=== PATIENT | female | born 1940 | race Caucasian/White ===

== ENCOUNTER 2017-05-30 07:25 | Day surgery (SDC) | payer MEDICARE ==
--- NOTE | 2017-05-30 04:59 | History and Physical Report ---
DATE: 05/29/2017. CHIEF COMPLAINT AND HISTORY OF CHIEF COMPLAINT: This patient presents with a history of an intractable lumbar radiculopathy. She had a spinal cord stimulator trial conducted on 04/05/2017 with 75 to 85 percent pain control. Due to the failure of therapy and the success of the trial, the patient presents for implantation of a permanent system. PAST MEDICAL HISTORY: Coronary artery disease, hypertension, pelvic cancer, degenerative arthritis. PAST SURGICAL HISTORY: Intracranial aneurysm repair, hysterectomy, rotator cuff surgery, gallbladder surgery, ankle surgery, carpal tunnel release. MEDICATIONS ON ADMISSION: To be provided. ALLERGIES: None. PHYSICAL EXAMINATION: General: Height and weight are unavailable. Vital Signs: Unavailable. Musculoskeletal: Examination of the musculoskeletal system shows tenderness in the lumbar spine. Range of motion does produce pain moving into both legs, somewhat more right than left. Motor evaluation shows weakness in the right lower extremity. Sensory field evaluation shows no significant deficits of the sensory function. Ambulation: Intact. No assistive device required. Neurologic: Cranial nerves are intact. IMPRESSION: LUMBAR RADICULOPATHY, ICD-10 CODE M54.16 AND M54.17. PLAN: The patient is here for implantation of a permanent spinal cord stimulator due to the failure of all therapy and the success of the trial. The procedure will be considered outpatient, although an overnight stay will be evaluated. The potential risks, side effects, and complications have been carefully reviewed and discussed including spinal cord injury, nerve root injury , spinal headache, and failure of the therapy. The patient understands and has consented. JOB NUMBER: [id number] cc: Ron Cook D.O. MTDD
[~2017-05-30 07:25] MED LIST: ACETAMINOPHEN 1,000 MG/100 ML BTL IV ONE; CEFAZOLIN 2 Gram 2 GM/50 ML BAG IVPB ONE; FAMOTIDINE 20MG TABLET PO ONE; MECLIZINE 25 MG TABLET PO ONE; METOCLOPRAMIDE 10 MG TABLET PO ONE
[2017-05-30] MEDS ORDERED: *PACU ONLY* KETAMINE HCL 10 MG/ML (20ML) VIAL IV ONE (07:26)
[2017-05-30] MEDS ORDERED: MIDAZOLAM HCL 2MG/2ML VIAL IV ONE ×2 (07:26)
[2017-05-30] MEDS ORDERED: CEFAZOLIN 1G VIAL IM ONE (07:26)
[2017-05-30] MEDS ORDERED: FLUMAZENIL 1MG/10ML VIAL IV ONE (07:26)
[2017-05-30] MEDS ORDERED: PROPOFOL 10 MG/ML VIAL IV ONE (07:26)
[2017-05-30] MEDS ORDERED: BUPIVACAINE 0.5% W/EPI MPF 30 ML VIAL IVP ONE (07:26)
[2017-05-30] MEDS ORDERED: KETOROLAC 30 MG/ML VIAL IVP ONE (07:26)
[2017-05-30] MEDS ORDERED: LIDOCAINE 1% W/EPI 1:200,000 MPF 30ML SQ ONE (07:26)
[2017-05-30] MEDS ORDERED: LIDOCAINE 2% MDV (20MG/ML) 20ML VIAL IV ONE (07:26)
[2017-05-30] MEDS ORDERED: FENTANYL PF 100MCG/2ML VIAL IV ONE (07:26)
[2017-05-30] MEDS ORDERED: TEMAZEPAM 15 MG CAPSULE PO PRN ×2 (11:16)
[2017-05-30] MEDS ORDERED: METOCLOPRAMIDE 10 MG TABLET PO PRN (11:16)
[2017-05-30] MEDS ORDERED: METOCLOPRAMIDE HCL 10 MG/2 ML VIAL IVP PRN (11:16)
[2017-05-30] MEDS ORDERED: SENNOSIDES/DOCUSATE SODIUM UD CAPSULE PO PRN ×2 (11:16)
[2017-05-30] MEDS ORDERED: DIPHENHYDRAMINE HCL IV 50 MG/ML VIAL IVP PRN ×2 (11:16)
[2017-05-30] MEDS ORDERED: HYDROMORPHONE HCL 2 MG/ML VIAL IM PRN ×2 (11:16)
[2017-05-30] MEDS ORDERED: OXYCODONE/APAP 10MG-325MG TABLET PO PRN ×2 (11:16)
[2017-05-30] MEDS ORDERED: ACETAMINOPHEN 325 MG TAB PO PRN ×2 (11:16)
[2017-05-30] MEDS ORDERED: DIPHENHYDRAMINE HCL 25 MG CAPSULE PO PRN ×2 (11:16)
[2017-05-30] MEDS ORDERED: AL HYDROX/MAG HYDROX 30ML UD PO PRN (11:16)
[2017-05-30] MEDS ORDERED: HYDROCODONE/APAP 7.5/325MG TABLET PO PRN (11:16)
--- NOTE | 2017-05-30 16:20 | Operative Note - [place] ---
DATE OF SURGERY: 05/30/17 PREOPERATIVE DIAGNOSIS: LUMBAR RADICULOPATHY, ICD-10 CODE = M54.16 AND M54.17. OPERATION: 1. FLUOROSCOPICALLY-GUIDED EPIDURAL ACCESS LEFT T11/12, PLACEMENT OF SPINAL CORD STIMULATOR LEAD 1, A [employer] IN[employer]INION 16 WITH 16 ELECTRODES POSITIONED LEFT T6. 2. FLUOROSCOPICALLY-GUIDED EPIDURAL ACCESS LEFT, T12/L1. PLACEMENT OF SPINAL CORD STIMULATOR LEAD 2, A [employer] 16 WITH 16 ELECTRODES POSITIONED RIGHT, T6. 3. COMPLEX PROGRAMMING LEAD 1 OVER 20 MINUTES FOLLOWED BY COMPLEX PROGRAMMING OF LEAD 2 OVER 20 MINUTES. 4. INCISION, SUBCUTANEOUS DISSECTION, AND ANCHORING LEAD 1 AND LEAD 2 TO SUPRASPINOUS FASCIA WITH [employer] LOCKING ANCHOR. 5. INCISION, SUBCUTANEOUS DISSECTION, AND CREATION OF SUBCUTANEOUS CREATION OF POUCH, LEFT POSTERIOR GLUTEAL MARGIN FOR PLACEMENT OF GENERATOR IDENTIFIED A [employer] PROGRAMMABLE RECHARGEABLE. 6. TUNNELING BETWEEN POUCHES, PLACEMENT OF EXTERNAL PORTION OF LEAD 1 AND LEAD 2 INTO GENERATOR POUCH, EACH LEAD INTERFACED TO GENERATOR. 7. PLACEMENT OF GENERATOR POUCH SECURING TO POSTERIOR FASCIA WITH NONABSORBABLE SUTURE. PLACEMENT OF LEADS INTO POUCH. CLOSURE OF BOTH INCISIONS VICRYL FOR FASCIA AND RUNNING SUBCUTICULAR VICRYL FOR SKIN. DERMABOND CLOSURE. 8. COMPLEX RECOVERY ROOM PROGRAMMING INTERNAL GENERATOR HOME USE TWO STIMULATORS , RECOVERY ROOM 20 MINUTES. SURGEON: BARON LARA D.O. ANESTHESIA: LOCAL SEDATION. ANESTHESIA PROVIDER: MARITZA MAURICIO CRNA. INDICATION: This patient presents with a history of intractable lumbar radiculopathy. Due to the failure of all therapy, a spinal cord stimulator trial was conducted with 75 to 85% pain control. Due to the failure of all therapy and the success of the trial, she is here for implantation of a permanent system. PROCEDURE: Intravenous line, vital sign monitoring, IV sedation, prepped and draped in sterile technique. Under imaging, the rotoscoliosis moderately severe was imaged using appropriate oblique imaging to align an AP view. The skin 11 and 01/12 were infiltrated with local on the left. Using two Epimed curved axis needles with [id number], the epidural space was accessed. At 11/12 , spinal cord stimulator lead 1, a [employer] Infinion 16 with 16 electrodes positioned left at T6. With the epidural access at T12, same technique, spinal cord stimulator lead 2, a [employer] Infinion 16 with 16 electrodes positioned right at T6. Complex programming of lead 1 over 20 minutes followed by complex programming of lead 2 over 20 minutes resulting in a complete pattern of stimulation across the back and into the legs; patient indicating we are in all of the areas of the pain. She was given the option to implant, continue to program for better results, or remove; she opted to implant. Questions repeated with the same response. The skin above and below both needles infiltrated, incision made, and subcutaneous dissection was conducted to the supraspinous fascia. The needles were removed then each lead was secured to the supraspinous fascia with a eTect Locking [place]. At the left posterior gluteal margin, a site picked by the patient for the generator, skin infiltrated, incision made, and subcutaneous dissection was conducted to form a pouch of suitable size and depth for the generator, a [employer] Programmable Rechargeable. A tunneling tool was used to carry the leads into the generator pouch and then each lead was interfaced with the generator. Antibiotic irrigation and Bovie for hemostasis. The generator was placed into the pouch and secured to the fascia with nonabsorbable suture. Both leads were placed into their own pouch and then the incisions were closed Vicryl for fascia and running subcuticular Vicryl for skin. Dermabond closure to approximate the edges of both wounds. She was transported to the Recovery Room stable. No side-effects from the procedure or the sedation. When fully awake and alert, she was transported to the Floor for monitoring. Because of age and medical history, she will be kept overnight for observation. She showed no abnormal findings. She had full extremity functionality and seemed to be appropriate in responses. DISCHARGE INSTRUCTIONS IN THE MORNIN. Sites will continue to remain clean and dry although she may shower, not sit in a tub because of the Dermabond. 2. Standard medications resumed including Levaquin, the antibiotic, 500 mg once a day for 14 days. 3. The office will contact the patient at home to set up an appointment in 7-10 days to evaluate the sites. Until then, she is to keep her activities low. No bend, lift, push, pull. All other instructions provided, numbers to contact, problems given. She will be discharged in the morning. cc: Dr. Frederic Brown JOB NUMBER: [id number] MTDD
[2017-05-30] MEDS: HYDROCODONE/APAP 7.5/325MG TABLET PO PRN ×3 (18:09→22:50)
[2017-05-30] MEDS: CEFAZOLIN 2 Gram 2 GM/50 ML BAG IVPB SCH (18:09)
[2017-05-30] MEDS ORDERED: ATENOLOL 25 MG TABLET PO SCH (22:00)
[2017-05-30] MEDS: 0.9 % SODIUM CHLORIDE 10ML SYR IVP SCH (23:58)
[2017-05-31] MEDS: CEFAZOLIN 2 Gram 2 GM/50 ML BAG IVPB SCH ×2 (00:29→08:46)
[2017-05-31] MEDS ORDERED: LEVOTHYROXINE SODIUM 75 MCG TABLET PO SCH (07:00)
[2017-05-31] MEDS: HYDROCODONE/APAP 7.5/325MG TABLET PO PRN (08:55)
[2017-05-31] MEDS: 0.9 % SODIUM CHLORIDE 10ML SYR IVP SCH (09:26)
[2017-05-31] MEDS ORDERED: VENLAFAXINE ER 75 MG CAPSULE PO SCH (10:00)
[2017-05-31] MEDS ORDERED: DOXAZOSIN MESYLATE 2 MG TABLET PO SCH (10:00)
[2017-05-31] MEDS ORDERED: ATORVASTATIN 20 MG TABLET PO SCH (10:00)
--- NOTE | 2017-05-31 13:28 | RADIOLOGY REPORT ---
EXAM: AP THORACOLUMBAR SPINE HISTORY: POST SPINAL CORD STIMULATOR IMPLANT. TECHNIQUE: A single AP view of the spine from the upper thoracic level down into the lower lumbar level was obtained. Comparison: None. FINDINGS: There is a battery pack partially seen overlying the left lower quadrant with associated wires extending up to the spine at the L1 level and the ascending up into the thoracic level with the segmented metallic tips extending up to the level of the superior end plate of the body of what is probably T5 with only eleven pair of thoracic rib bearing vertebra identified. There may be six lumbar type vertebra although the lower lumbar spine is not entirely included on the film. There is a prominent lumbar levoscoliosis with multilevel degenerative disk disease in the lumbar spine. There is probably some postoperative change overlying the left humeral head as well. IMPRESSION: POST PROCEDURE FINDINGS DETAILED ABOVE. CORRELATION WITH THE PROCEDURE ITSELF SUGGESTED. JOB NUMBER: [id number] MTDD
== END 2017-05-31 10:00 | disposition home or self-care (01) ==
LOC: SUR 07:25 → MEDSURG 11:30 → SUR 05-31 10:00
PROVIDERS: ATTEND Pain Medicine Interventional Pain Medicine
DX: M54.16 Radiculopathy, lumbar region (principal); E78.00 Pure hypercholesterolemia, unspecified; I10 Essential (primary) hypertension
CPT/HCPCS: 72020; 85002; 95972; C1820; C1883; J0690; J1885